=== PATIENT | male | born 1950 | race Caucasian/White ===

== ENCOUNTER 2020-08-16 11:54 | Outpatient (CLI) | payer MEDICARE, BC ==
[2020-08-16 14:37] LABS: #Eosinphils 0.2 10x3/uL (0.0-0.5); #Monocytes 0.5 10x3/uL (0.0-1.1); #Neutrophils 2.3 10x3/uL (1.5-8.4); %Basophils 0.7 % (0.0-2.0); %Eosinophils 3.7 % (0.0-6.0); %Lymphocytes 25.6 % (18.0-47.0); %Monocytes 12.2 % (0.0-10.0); %Neutrophils 57.6 % (40.0-75.0); Hemoglobin 12.4 g/dL (13.5-17.5); Mean Corpuscular HGB CONC 31.4 g/dL (32.0-36.0); Mean Corpuscular Hemoglobin 30.6 pg (27.0-33.0); Mean Corpuscular Volume 97.5 fl (81.2-95.1); Mean Platelet Volume 10.4 fl (7.4-10.4); Platelet Count 131 10x3/uL (150-450); RBC Distribution Width 15.8 % (11.5-14.5); Red Blood Cell (RBC) Count 4.05 10x6/uL (4.32-5.72)
[2020-08-16 14:49] LABS: PTT 25.5 sec (22.0-33.0); Prothrombin Time 11.2 sec (9.5-12.1)
[2020-08-16 15:02] LABS: Anion Gap 11 mmol/L (10-20); BUN (Urea Nitrogen) 28 mg/dL (8.4-25.7); Calc. Creatinine Clearance 0 mL/min (70-130); Calcium 9.1 mg/dL (7.8-10.44); Carbon Dioxide 30 mmol/L (23-31); Chloride 105 mmol/L (98-107); Glucose 113 mg/dL (83-110); Potassium 4.5 mmol/L (3.5-5.1); Sodium 141 mmol/L (136-145)
[2020-08-16 21:45] LABS: SARS-CoV-2 PCR by NAA Not Detected (NotDetected)
== END 2020-08-16 11:55 | disposition home or self-care (01) ==
LOC: CSHLAB 11:54
PROVIDERS: ATTEND Specialist
DX: Z01.812 Encounter for preprocedural laboratory examination (principal); Z20.822 Contact with and (suspected) exposure to COVID-19
CPT/HCPCS: 80048; 85025; 85610; 85730; 87635; U0003; U0005

== ENCOUNTER → 2020-08-19 | Day surgery (SDC) | payer MEDICARE, BC ==
[~2020-08-19] MED LIST: Acetylcysteine 800 MG/4 ML VIAL ONE; Adenosine 6 MG/2 ML VIAL ONE; Atropine Sulfate 0.4 mg/1 ml Vial ONE; Bivalirudin 250 MG VIAL ONE; Fentanyl 100 MCG/2 ML VIAL ONE; Heparin 10,000 UNITS/ 10 ML VIAL ONE; Lidocaine 1% PF 5 ML VIAL ONE; Midazolam HCl 2 mg/2 ml Vial ONE; Nitroglycerin 50 MG/250 ML BOT 0 ML ONE; PHENYLEPHRINE-NS 100 MCG/ML 10 ML SYRINGE ONE; Phenylephrine 40 MG/NS 250 ML 40 MG in Premix Bag 1 BAG IVPB SCH; Verapamil 5 MG/2 ML VIAL ONE
[2020-08-19 11:06] VITALS: BMI 27.8
== END ==
LOC: CSHSDC 10:33
PROVIDERS: ATTEND Specialist
DX: I65.23 Occlusion and stenosis of bilateral carotid arteries (principal); I25.10 Atherosclerotic heart disease of native coronary artery without angina pectoris; Z95.5 Presence of coronary angioplasty implant and graft; I70.1 Atherosclerosis of renal artery; E11.9 Type 2 diabetes mellitus without complications; E78.2 Mixed hyperlipidemia; Z79.01 Long term (current) use of anticoagulants; Z79.82 Long term (current) use of aspirin; Z79.4 Long term (current) use of insulin; I70.293 Other atherosclerosis of native arteries of extremities, bilateral legs; I10 Essential (primary) hypertension
CPT/HCPCS: 36222; 36227; 71045; 82962; 93005; C1760; 36416; 93010; 99152; J0153; J0461; J0583; J1644; J2250; J3010

== ENCOUNTER 2021-03-22 17:28 | Observation (INO) | payer MEDICARE, BC ==
[2021-03-22 18:22] LABS: #Eosinphils 0.2 10x3/uL (0.0-0.5); #Monocytes 0.6 10x3/uL (0.0-1.1); #Neutrophils 4.5 10x3/uL (1.5-8.4); %Basophils 0.5 % (0.0-2.0); %Eosinophils 3.2 % (0.0-6.0); %Lymphocytes 20.4 % (18.0-47.0); %Monocytes 8.4 % (0.0-10.0); %Neutrophils 66.9 % (40.0-75.0); Hemoglobin 12.2 g/dL (13.5-17.5); Mean Corpuscular HGB CONC 32.6 g/dL (32.0-36.0); Mean Corpuscular Hemoglobin 30.5 pg (27.0-33.0); Mean Corpuscular Volume 93.5 fl (81.2-95.1); Mean Platelet Volume 10.6 fl (7.4-10.4); Platelet Count 120 10x3/uL (150-450); RBC Distribution Width 15.8 % (11.5-14.5); White Blood Cell (WBC) Count 6.7 10x3/uL (3.5-10.5)
[2021-03-22 18:41] LABS: ALT (SGPT) 28 U/L (8-55); AST (SGOT) 20 U/L (5-34); Albumin 3.3 g/dL (3.4-4.8); Alkaline Phosphatase 67 U/L (40-110); Anion Gap 12 mmol/L (10-20); BUN (Urea Nitrogen) 29 mg/dL (8.4-25.7); Bilirubin, Total 0.4 mg/dL (0.2-1.2); Calc. Creatinine Clearance 0 mL/min (70-130); Carbon Dioxide 26 mmol/L (23-31); Chloride 108 mmol/L (98-107); Globulin 2.2 g/dL (2.4-3.5); Glucose 182 mg/dL (83-110); Lipase 47 U/L (8-78); Potassium 4.4 mmol/L (3.5-5.1); Protein, Total 5.5 g/dL (5.8-8.1); Sodium 142 mmol/L (136-145)
[2021-03-22 19:34] LABS: Bilirubin Neg (Negative); Blood, Urine Negative (Negative); Clarity Clear (Clear); Glucose, Urine (Dipstick) 100 mg/dL (Negative); Ketone, Urine Negative (Negative); Leukocyte Negative (Negative); Nitrite Negative (Negative); Protein, Urine (Dipstick) 15 mg/dl (Neg-Trace); Specific Gravity, Urine 1.015 (1.002-1.036)
[2021-03-22] MEDS ORDERED: Dextrose 5% in Water 1,000 ML IV PRN (21:37)
[2021-03-22] MEDS ORDERED: Dextrose 50% Abboject 50 ML SYRINGE SLOW IVP PRN (21:37)
[2021-03-22] MEDS ORDERED: HumaLOG 300 UNITS/3 ML VIAL SC PRN (21:37)
[2021-03-22 22:30] LABS: Magnesium 1.9 mg/dL (1.6-2.6)
[2021-03-22 22:37] LABS: Troponin I 0.013 ng/mL (< 0.028)
[2021-03-23 01:46] VITALS: BMI 25.5
[2021-03-23 02:06] LABS: Troponin I Less than 0.010 ng/mL (< 0.028)
[2021-03-23 07:12] LABS: #Eosinphils 0.2 10x3/uL (0.0-0.5); #Monocytes 0.5 10x3/uL (0.0-1.1); #Neutrophils 2.7 10x3/uL (1.5-8.4); %Basophils 0.6 % (0.0-2.0); %Eosinophils 4.8 % (0.0-6.0); %Lymphocytes 28.9 % (18.0-47.0); %Monocytes 10.9 % (0.0-10.0); %Neutrophils 54.2 % (40.0-75.0); Hemoglobin 12.8 g/dL (13.5-17.5); Mean Corpuscular HGB CONC 32.2 g/dL (32.0-36.0); Mean Corpuscular Hemoglobin 29.6 pg (27.0-33.0); Mean Corpuscular Volume 91.9 fl (81.2-95.1); Mean Platelet Volume 10.7 fl (7.4-10.4); Platelet Count 119 10x3/uL (150-450); RBC Distribution Width 15.6 % (11.5-14.5); Red Blood Cell (RBC) Count 4.33 10x6/uL (4.32-5.72)
[2021-03-23 07:19] LABS: Anion Gap 10 mmol/L (10-20); BUN (Urea Nitrogen) 28 mg/dL (8.4-25.7); Calc. Creatinine Clearance 39 mL/min (70-130); Calcium 8.7 mg/dL (7.8-10.44); Carbon Dioxide 26 mmol/L (23-31); Cardiac Risk 2.9 (Less than 4.5); Chloride 110 mmol/L (98-107); Cholesterol 116 mg/dl (< 200 Desired); Glucose 158 mg/dL (83-110); HDL Cholesterol 40 mg/dL (>60 Neg Risk); LDL Cholesterol, Calculated 59 mg/dL; Potassium 4.4 mmol/L (3.5-5.1); Sodium 142 mmol/L (136-145); Triglycerides 83 mg/dL (Less than 150)
[2021-03-23] MEDS ORDERED: Enoxaparin Sodium 30 MG/0.3 ML SYRINGE SC SCH (09:00)
[2021-03-23] MEDS: Ezetimibe 10 MG TAB PO SCH (09:45)
[2021-03-23] MEDS: Pioglitazone HCl 15 MG TAB PO SCH (09:45)
[2021-03-23] MEDS: Pregabalin 50 MG CAP PO SCH ×2 (09:46→20:19)
[2021-03-23] MEDS: Lantus 1000 UNITS/10 ML VIAL SC SCH (09:46)
[2021-03-23] MEDS: Aspirin 81 mg Enteric Coated Tablet PO SCH (09:46)
[2021-03-23] MEDS: Clopidogrel Bisulfate 75 MG TAB PO SCH (09:47)
[2021-03-23] MEDS: Sodium Chloride 0.9% 1,000 ML IV SCH (14:25)
[2021-03-23] MEDS: Acetaminophen/Codeine 30-300mg Tablet PO PRN ×2 (14:34→20:21)
[2021-03-23 15:27] LABS: SARS-CoV-2 PCR by NAA Not Detected (NotDetected)
[2021-03-23] MEDS: Carvedilol 6.25 MG TAB PO SCH (17:28)
[2021-03-23] MEDS ORDERED: Escitalopram Oxalate 20 mg Tablet PO SCH (21:00)
[2021-03-23] MEDS ORDERED: Alogliptin 6.25 MG TAB PO SCH (21:00)
[2021-03-23] MEDS ORDERED: Atorvastatin Calcium 40 MG TAB PO SCH (21:00)
[2021-03-23] MEDS ORDERED: Tamsulosin HCl 0.4 MG CAP PO SCH (21:00)
[2021-03-24] MEDS: Sodium Chloride 0.9% 1,000 ML IV SCH (05:08)
[2021-03-24 08:28] LABS: #Eosinphils 0.2 10x3/uL (0.0-0.5); #Monocytes 0.5 10x3/uL (0.0-1.1); #Neutrophils 2.1 10x3/uL (1.5-8.4); %Basophils 0.5 % (0.0-2.0); %Eosinophils 4.6 % (0.0-6.0); %Lymphocytes 29.9 % (18.0-47.0); %Monocytes 11.6 % (0.0-10.0); %Neutrophils 52.9 % (40.0-75.0); Hemoglobin 12.4 g/dL (13.5-17.5); Mean Corpuscular HGB CONC 31.5 g/dL (32.0-36.0); Mean Corpuscular Hemoglobin 29.3 pg (27.0-33.0); Mean Corpuscular Volume 93.1 fl (81.2-95.1); Mean Platelet Volume 10.1 fl (7.4-10.4); Platelet Count 97 10x3/uL (150-450); RBC Distribution Width 16.1 % (11.5-14.5); Red Blood Cell (RBC) Count 4.23 10x6/uL (4.32-5.72); White Blood Cell (WBC) Count 3.9 10x3/uL (3.5-10.5)
[2021-03-24 08:37] LABS: Anion Gap 8 mmol/L (10-20); BUN (Urea Nitrogen) 22 mg/dL (8.4-25.7); Calc. Creatinine Clearance 49 mL/min (70-130); Calcium 8.3 mg/dL (7.8-10.44); Carbon Dioxide 29 mmol/L (23-31); Chloride 108 mmol/L (98-107); Glucose 104 mg/dL (83-110); Potassium 4.3 mmol/L (3.5-5.1); Sodium 141 mmol/L (136-145)
[2021-03-24] MEDS ORDERED: Enoxaparin Sodium 40 MG/0.4 ML SYRINGE SC SCH (09:00)
[2021-03-24] MEDS: Carvedilol 6.25 MG TAB PO SCH (09:17)
[2021-03-24] MEDS: Clopidogrel Bisulfate 75 MG TAB PO SCH (09:47)
[2021-03-24] MEDS: Ezetimibe 10 MG TAB PO SCH (09:47)
[2021-03-24] MEDS: Pregabalin 50 MG CAP PO SCH (09:48)
[2021-03-24] MEDS: Pioglitazone HCl 15 MG TAB PO SCH (09:49)
[2021-03-24] MEDS: Aspirin 81 mg Enteric Coated Tablet PO SCH (09:49)
[2021-03-24] MEDS: Lantus 1000 UNITS/10 ML VIAL SC SCH (09:49)
[2021-03-24] MEDS: Acetaminophen/Codeine 30-300mg Tablet PO PRN (10:10)
[2021-03-24 11:48] VITALS: BP 125/63
[2021-03-24 13:10] VITALS: TEMP 96.8
== END 2021-03-24 15:45 | disposition home or self-care (01) ==
LOC: CSHERS 17:28 → CSHTELE 17:29
PROVIDERS: ADMIT Family Medicine; ATTEND Hospitalist
DX: R55 Syncope and collapse (principal); E11.22 Type 2 diabetes mellitus with diabetic chronic kidney disease; N18.32 Chronic kidney disease, stage 3b; E11.42 Type 2 diabetes mellitus with diabetic polyneuropathy; Z79.4 Long term (current) use of insulin; I25.10 Atherosclerotic heart disease of native coronary artery without angina pectoris; K21.9 Gastro-esophageal reflux disease without esophagitis; Z79.899 Other long term (current) drug therapy; Z79.82 Long term (current) use of aspirin; Z95.5 Presence of coronary angioplasty implant and graft; Z20.822 Contact with and (suspected) exposure to COVID-19
CPT/HCPCS: 70450; 71045; 72125; 80048 ×2; 80053; 80061; 81003; 82962 ×2; 83690; 83735; 83880; 84484 ×3; 85025 ×3; 85379; 93005 ×2; 93306; 96372 ×2; 99285; G0378 ×4; U0003; U0005; 36415; 36416; 93010; J1650; J1815; J7050

== ENCOUNTER 2024-12-08 13:46 | Emergency (ER) | payer MEDICARE | END 2024-12-08 15:00 | disposition home or self-care (01) | LOC: CSHERS 13:46 | DX: L03.012 Cellulitis of left finger (principal); I12.9 Hypertensive chronic kidney disease with stage 1 through stage 4 chronic kidney disease, or unspecified chronic kidney disease; E11.22 Type 2 diabetes mellitus with diabetic chronic kidney disease; N18.30 Chronic kidney disease, stage 3 unspecified; Z95.5 Presence of coronary angioplasty implant and graft | CPT/HCPCS: 99283 ==

== ENCOUNTER 2024-12-26 12:16 | Emergency (ER) | payer MEDICARE ==
[2024-12-26] MEDS ORDERED: Cefepime 2 GM VIAL ONE (13:52)
[2024-12-26 13:56] LABS: #Basophils 0.04 10x3/uL (0.0-0.2); #Eosinophils 0.29 10x3/uL (0.0-0.5); #Monocytes 0.53 10x3/uL (0.0-1.1); #Neutrophils 3.13 10x3/uL (1.5-8.4); %Basophils 0.8 % (0.0-2.0); %Eosinophils 5.5 % (0.0-6.0); %Lymphocytes 24.7 % (18.0-47.0); %Monocytes 10.0 % (0.0-10.0); %Neutrophils 58.8 % (40.0-75.0); Hematocrit 36.9 % (38.8-50.0); Hemoglobin 11.8 g/dL (13.5-17.5); Mean Corpuscular Hemoglobin 28.4 pg (27.0-33.0); Mean Corpuscular Volume 88.7 fL (81.2-95.1); Platelet Count 167 10x3/uL (150-450); Red Blood Cell (RBC) Count 4.16 10x6/uL (4.32-5.72); White Blood Cell (WBC) Count 5.31 10x3/uL (3.5-10.5)
[2024-12-26 14:12] LABS: ALT (SGPT) 49 U/L (Less than 45); AST (SGOT) 37 U/L (11-34); Albumin 3.4 g/dL (3.1-4.5); Alkaline Phosphatase 80 U/L (40-110); Anion Gap 11 mmol/L (10-20); BUN (Urea Nitrogen) 23 mg/dL (8.4-25.7); Bilirubin, Total 0.5 mg/dL (0.3-1.2); Calc. Creatinine Clearance 0 mL/min (70-130); Calcium 9.2 mg/dL (7.8-10.44); Carbon Dioxide 30 mmol/L (23-31); Chloride 104 mmol/L (98-107); Globulin 3.2 g/dL (2.4-3.5); Glucose 103 mg/dL (83-110); Potassium 4.1 mmol/L (3.5-5.1); Sodium 141 mmol/L (136-145)
[2024-12-26] MEDS ORDERED: HYDROcodone/Acetaminophen 5/325 mg Tablet ONE (14:43)
[2024-12-26] MEDS ORDERED: Vancomycin 1.5 GRAM/300 ML BAG 1.5 GM in Premix 1 BAG IVPB SCH (14:45)
== END 2024-12-26 16:45 | disposition short-term general hospital (02) ==
LOC: CSHERS 12:16
DX: L03.012 Cellulitis of left finger (principal); E11.22 Type 2 diabetes mellitus with diabetic chronic kidney disease; I12.9 Hypertensive chronic kidney disease with stage 1 through stage 4 chronic kidney disease, or unspecified chronic kidney disease; N18.30 Chronic kidney disease, stage 3 unspecified
CPT/HCPCS: 73140; 80053; 83605; 85025; 87040; J0692; J3373; 36415; 96374; 96375